=== PATIENT | female | born 2000 | race Two or more races ===

== ENCOUNTER 2023-06-25 23:09 | Emergency (ER) | payer OTHER ==
[~2023-06-25] VITALS: Ht 154.9 cm; Wt 76.7 kg
[2023-06-25] MEDS ORDERED: ADVAIR 100-501 EACH IH (23:17)
[2023-06-26] MEDS ORDERED: KETOROLAC TROMETHAMINE 10 MG TABLET PO STA (01:24)
[2023-06-26] MEDS ORDERED: KETO10TA2 PO (03:22)
== END 2023-06-26 03:33 ==
LOC: ER 23:09
DX: S69.81XA Other specified injuries of right wrist, hand and finger(s), initial encounter (principal); S59.911A Unspecified injury of right forearm, initial encounter; X58.XXXA Exposure to other specified factors, initial encounter; Y93.89 Activity, other specified; Y92.69 Other specified industrial and construction area as the place of occurrence of the external cause; Y99.8 Other external cause status; Z88.8 Allergy status to other drugs, medicaments and biological substances; Z91.013 Allergy to seafood

== ENCOUNTER 2024-06-08 12:46 | Outpatient (CLI) | payer OTHER ==
[~2024-06-08 12:46] MED LIST: ADVAIR 100-501 EACH IH; KETO10TA2 PO
== END 2024-06-08 13:00 | disposition home or self-care (01) ==
LOC: MRI 12:46
PROVIDERS: ATTEND Orthopaedic Surgery
DX: M25.561 Pain in right knee (principal)
CPT/HCPCS: 73721